=== PATIENT | male | born 1980 | race Caucasian/White ===

== ENCOUNTER 2018-09-30 13:52 | Emergency (ER) | payer SELFPAY ==
[2018-09-30 14:06] VITALS: BP 127/54; PULSE 72; RESP 18; TEMP 36.7; O2SAT 97
--- NOTE | 2018-09-30 14:50 | ED.GENADUL_ITS ---
Discharge Plan Disposition Patient Disposition: HOME Condition: Good Discharge Details Chief Complaint: Laceration Clinical Impression: Laceration Primary Care Provider: Martha,Local ED Provider: Isreal Henry Home Meds and New Rx's Prescriptions: New amoxicillin-pot clavulanate [Augmentin] 875-125 mg tablet 1 tab PO BID Qty: 14 RF: 0 No Action ibuprofen 600 MG tablet 600 mg PO TID PRN PRNQty: 90 RF: 0 Discharge Instructions Instructions: Care For Your Stitches (ED), Laceration (ED) Additional Instructions: Please leave the dressing on for 24 hours, then you may remove and begin cleaning the wound at least twice a day with soap and water. Continue to apply antibiotic ointment. Do not directly soak the area. Watch for any signs of infection and return if any increasing redness, swelling, pain, drainage. He can return here in 7-10 days for removal of the stitches. It is free if you come back here. You can also follow-up with your primary care provider if you so please. If you notice any worsening of your symptoms, or any new symptoms such as vomiting, diarrhea, fever, chills, shortness of breath, chest pain, numbness, weakness, or fainting , please return immediately to the emergency department for reevaluation. Please follow up with your primary care provider as soon as possible for reassessment and reevaluation. As always, it was a pleasure participating in your medical care today. Discharge Data Discharge Date/Time-TO BE ENTERED AT DEPARTURE: 09/30/18 15:00 Medical Decision Making This is a very pleasant 38-year-old male whose tetanus is up-to-date who presents with a laceration on his knuckle index finger 1 cm linear laceration. No evidence of neurovascular abnormality. No evidence of tendon involvement, no evidence of laxity for the finger. No signs of weakness whatsoever. The area was anesthetized with 5 cc of lidocaine without epinephrine. No JVD blood the area was then vigorously scrubbed and irrigated with chlorhexidine and normal saline. After 3 simple interrupted 5-0 nylon sutures were placed with good wound edge reapproximation. A small amount of Dermabond was applied to the knots. Patient tolerated this well and shows continued good capillary refill, and normal neurovascular exam. Patient is will be discharged home with instructions which to return the next 7-10 days for removal of the sutures, as well as red flags which to return. I have extensively reviewed the treatment plan and discharge instructions with the patient. I have addressed all patient concerns at this time. The patient was made aware of what symptoms to monitor for that would warrant a return to the emergency department. Discussed the plan with the patient, they demonstrate verbal understanding and agreement with our assessment and plan at this time. HPI General Date/Time Provider Initiated Documentation: 09/30/18 14:48 . HPI Narrative: This is a pleasant 38-year-old male who is [id number] who presents for laceration to his second metacarpal phalangeal joint on his left hand. Patient states he was working on a car when the wrench slipped and cut the knuckle. His tetanus was updated 2 years ago. Patient denies any numbness tingling or weakness. He denies any pain in his joint aside for the laceration itself. He denies being punched, or any other abnormalities. He states that immediately after he cut it he wash his hands thoroughly with warm hot soapy water. He denies any other complaints or modifying factors at this time. Related Data Home Medications Medication Instructions Recorded Confirmed ibuprofen 600 mg PO TID PRN PRN #90 tablet 11/25/16 09/30/18 amoxicillin-pot clavulanate 1 tab PO BID #14 tab 09/30/18 [Augmentin] Previous Rx's Medication Instructions Recorded ibuprofen 600 mg PO TID PRN PRN #90 tablet 11/25/16 amoxicillin-pot clavulanate 1 tab PO BID #14 tab 09/30/18 [Augmentin] Allergies Allergy/AdvReac Type Severity Reaction Status Date / Time No Known Allergies Allergy Unverified 12/02/16 14:01 General Stated Complaint: Laceration SARA: 4 Review of Systems Review of Systems All systems reviewed & are unremarkable except as noted in HPI and below PFSH Medical History Chlamydia infection Left inguinal hernia Social History Smoking and Tabacco status: Current every day Exam Narrative Exam Narrative: 1.Const: Well-nourished, Well-developed, appearing stated age 2.Eyes: PERRL, no conjunctival injection, and symmetrical lids. 3.ENT: Atraumatic external nose and ears. Moist MM. Neck: Symmetric, trachea midline, No thyromegaly. 4.CVS: +S1/S2, No murmurs or gallops. Peripheral pulses 2+ and equal in all extremities. Brisk capillary refill in all extremities. 5.RESP: Unlabored respiratory effort. Clear to auscultation bilaterally. No wheezes rales or rhonchi 6.GI: Soft, Nontender/Nondistended, No hepatosplenomegaly. No guarding or rebound. 7.MSK: Normocephalic, Extremities w/o deformity or ttp No cyanosis or clubbing, Normal movement of all extremities. Normal flexion extension in all movements of the index finger on his left finger. No evidence of tendon weakness, laxity, or abnormality. Capillary refill is brisk distal to the injury site. Laceration is 1 cm, linear, and across the knuckle of the second finger. No evidence of deep tissue involvement of the tendon, or laceration to the tendon or bone. No tenderness or swelling. 8.Skin: Warm, Dry. No rashes or lesions. 1 cm linear laceration of the metacarpal phalangeal joint on the second finger. 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 Sensation grossly intact, no focal neurologic deficits. 10.Psych: (AAO) x3. Appropriate mood and affect Course Vital Signs Temperature 36.7 C 09/30/18 14:06 Pulse 72 09/30/18 14:06 Respiratory Rate 18 09/30/18 14:06 Blood Pressure 127/54 L 09/30/18 14:06 Pulse Oximetry 97 09/30/18 14:06 Temperature 36.7 C 09/30/18 14:06 Temperature Source Temporal Artery Scan 09/30/18 14:06 Pulse 72 09/30/18 14:06 Respiratory Rate 18 09/30/18 14:06 Respiratory Effort Non-Labored 09/30/18 14:07 Blood Pressure 127/54 L 09/30/18 14:06 Pulse Oximetry 97 09/30/18 14:06 Oxygen Delivery Method Room Air 09/30/18 14:06 Oxygen Flow Rate 0 09/30/18 14:06 Pain Level 1 09/30/18 14:24
== END 2018-09-30 16:00 | disposition home or self-care (01) ==
PROVIDERS: Emergency Provider Student in an Organized Health Care Education/Training Program
DX: S61.211A Laceration without foreign body of left index finger without damage to nail, initial encounter (principal); W27.0XXA Contact with workbench tool, initial encounter
CPT/HCPCS: 12001

== ENCOUNTER 2025-06-28 11:18 | Outpatient (CLI) | payer SELFPAY ==
[2025-06-28 23:41] LABS: Hepatitis A Antibody IgM Negative (Negative); Hepatitis C Ab w Rflx HCV PCR Negative (Negative)
[2025-06-29 09:38] LABS: HSV Type 2 Ab, IgG Positive (Negative)
[2025-06-29 09:39] LABS: Syphilis Serology (RPR) Negative (Negative)
[2025-06-29 11:47] LABS: Chlamydia Result Negative (Negative); GC Result Negative (Negative)
== END 2025-06-28 11:19 | disposition home or self-care (01) ==
LOC: LOS 11:18
PROVIDERS: Visit Provider Physician Assistant
DX: N48.9 Disorder of penis, unspecified (principal); Z11.3 Encounter for screening for infections with a predominantly sexual mode of transmission
CPT/HCPCS: 36415; 86704; 86709; 86803; 87340; 87491; 87591; 86592; 86695; 86696